=== PATIENT | male | born 1960 | race Caucasian/White ===

== ENCOUNTER 2019-12-04 19:19 | Observation (INO) | payer MEDICARE, OTHER ==
[~2019-12-04] VITALS: Ht 175.3 cm; Wt 151.0 kg
[~2019-12-04 19:19] MED LIST: DIOVAN160 MG PO; GLUCOTROL XL10 MG; KEFLEX500 MG; METFORMIN HCL500 MG PO; METHOTREXATE2.5 MG PO; NEURONTIN300 MG; TAMSULOSIN HCL0.4 MG PO; TYLENOL WITH C1 EACH PO
--- OUTSIDE RECORDS SUMMARY | 2019-12-04 19:22 | XMS REPORT ---
Author Author [facility] Address Unknown Phone Unavailable Care Team Providers Care Showroom Salesperson Name Role Phone Unavailable Unavailable Problems This patient has no known problems. Allergies, Adverse Reactions, Alerts This patient has no known allergies or adverse reactions. Medications This patient has no known medications. Encounters Start Date/Time End Date/Time Encounter Type Admission Type Attending [facility] Care Facility Care Department Encounter ID 2019-08-11 20:53:00 2019-08-11 20:53:00 Emergency E [id number]
[2019-12-04] MEDS ORDERED: SODIUM CHLORIDE 0.9% 1000ML 1,000 ML IV STA (19:28)
[2019-12-04] MEDS ORDERED: ASPIRIN 81 MG CHEW TAB PO ONE ×2 (19:30→21:45)
[2019-12-04] MEDS ORDERED: ADENOSINE 6 MG/2 ML VIAL IV ONE ×3 (19:30→20:00)
[2019-12-04 19:36] LABS: BASOPHILS % 0.4 % (0.0-1.0); EOSINOPHILS # (AUTO) 0.2 (0.0-0.4); EOSINOPHILS % 2.1 % (0.0-6.0); HEMATOCRIT 49.7 % (38.2-49.6); LYMPHOCYTES % 19.3 % (18.0-39.1); MEAN CORPUSCULAR HEMOGLOBIN 27.8 pg (28-32); MEAN CORPUSCULAR HGB CONC 32.2 g/dL (31-35); MEAN CORPUSCULAR VOLUME 86.4 fL (81-99); MONOCYTES # (AUTO) 0.8 (0.2-0.8); MONOCYTES % 7.8 % (4.4-11.3); NEUTROPHILS # (AUTO) 7.3 (2.1-6.9); NEUTROPHILS % 69.9 % (38.7-80.0); PLATELET COUNT 308 x10e3/uL (140-360); RED BLOOD COUNT 5.75 x10e6/uL (4.3-5.7); RED CELL DISTRIBUTION WIDTH 13.9 % (11.7-14.4)
[2019-12-04 19:50] LABS: ALANINE AMINOTRANSFERASE 23 IU/L (0-55); ALBUMIN 3.1 g/dL (3.5-5.0); ALBUMIN/GLOBULIN RATIO 0.9 (0.8-2.0); ALKALINE PHOSPHATASE 97 IU/L (40-150); ANION GAP 13.3 mmol/L (8-16); BLOOD UREA NITROGEN 12 mg/dL (7-26); BUN/CREATININE RATIO 11 (6-25); CALCIUM 8.3 mg/dL (8.4-10.2); CARBON DIOXIDE 23 mmol/L (22-29); CHLORIDE 108 mmol/L (98-107); CREATINE KINASE 130 IU/L (30-200); CREATININE, SERUM 1.07 mg/dL (0.72-1.25); EST GLOMERULAR FILTRATION RATE > 60 ML/MIN (60-); GLUCOSE 231 mg/dL (74-118); POTASSIUM 3.3 mmol/L (3.5-5.1); SODIUM 141 mmol/L (136-145)
[2019-12-04] MEDS ORDERED: ADENOSINE 6MG/2ML 3 ML ONE (19:50)
--- NOTE | 2019-12-04 20:38 | Diagnostic Imaging Report ---
EXAMINATION: CHEST SINGLE (PORTABLE) INDICATION: ^ERMD ORDER ^[id number] ^1950 ^Y COMPARISON: None FINDINGS: AP view TUBES and LINES: None. LUNGS: Lungs are well inflated. Lungs are clear. There is no evidence of pneumonia or pulmonary edema. PLEURA: No pleural effusion or pneumothorax. HEART AND MEDIASTINUM: The cardiac silhouette appears mildly prominent. BONES AND SOFT TISSUES: No acute osseous lesion. Soft tissues are unremarkable. UPPER ABDOMEN: No free air under the diaphragm. IMPRESSION: Mildly prominent cardiac silhouette. No acute abnormalities in the lungs. Signed by: Dr. Sangita Prado M.D. on 12/04/2019 8:35 PM
[2019-12-04] MEDS ORDERED: METOPROLOL TARTRATE INJ 1 MG/ML VIAL IV ONE (20:45)
[2019-12-04] MEDS ORDERED: SODIUM CHLORIDE 0.9% 50ML 50 ML ONE (21:24)
[2019-12-04] MEDS ORDERED: IOPAMIDOL 370 MG/ML 200 ML INFUS..BTL INJ ONE (21:24)
[2019-12-04] MEDS ORDERED: ONDANSETRON HCL INJ 2MG/ML 2ML 2 MG/ML VIAL IV STA (21:32)
[2019-12-04] MEDS ORDERED: MORPHINE SULFATE 2 MG/ML SYR 1ML IV PRN (21:45)
--- NOTE | 2019-12-04 22:34 | Diagnostic Imaging Report ---
EXAM: CT Chest WITH contrast- Pulmonary Embolism Protocol INDICATION: Chest pain. COMPARISON: None TECHNIQUE: Chest was scanned utilizing a multidetector helical scanner from the lung apex through the level of the diaphragm after administration of IV contrast. Coronal and sagittal reformations were obtained. Pulmonary embolism protocol was performed. IV CONTRAST: 100 cc of Isovue 370 RADIATION DOSE: Total DLP: 613.2 mGy*cm Dose modulation, iterative reconstruction, and/or weight based adjustment of the mA/kV was utilized to reduce the radiation dose to as low as reasonably achievable. COMPLICATIONS: None FINDINGS: LINES/ TUBES: None. PULMONARY ARTERIES: No filling defect is identified within the pulmonary arteries to the segmental level. The subsegmental pulmonary arteries are not well opacified. Main pulmonary artery measures 3.5 cm in diameter. LUNGS AND AIRWAYS: The central airways are patent. There is mosaic attenuation with multifocal groundglass opacities in all lobes. Diffuse mild bronchial wall thickening. No evidence of consolidative pneumonia. PLEURA: The pleural spaces are clear. HEART AND MEDIASTINUM: Limited evaluation of the thyroid gland. There is enlargement of the right thyroid gland. No mediastinal, hilar or axillary lymphadenopathy. No cardiomegaly or pericardial effusion. Scattered coronary atherosclerosis. UPPER ABDOMEN: Limited contrast-enhanced views of the upper abdomen. Cholelithiasis. BONES: The visualized bony thorax is within normal limits. SOFT TISSUES: Unremarkable. IMPRESSION: No evidence of pulmonary embolism to level of the segmental pulmonary arteries. Enlarged main pulmonary artery, suggestive of pulmonary arterial hypertension. Mosaic attenuation with multifocal groundglass opacities, which may reflect small airways disease, microvascular obstruction, infectious process, or pulmonary edema. No evidence of consolidative pneumonia. Enlarged right thyroid gland. Recommend nonemergent follow-up thyroid ultrasound for further evaluation. Signed by: Dr. Marielos Jensen MD on 12/04/2019 10:31 PM
[2019-12-05] VITALS (9 sets, daily range): BP systolic 133–176; BP diastolic 65–85
--- NOTE | 2019-12-05 | NUR ---
PATIENT RESTING, NO DISTRESS NOTED, REMAIN ON TELEMETRY AT . CALL LIGHT REMAIN IN REACH. WILL CONTINUE TO MONITOR.
[2019-12-05] MEDS: MORPHINE SULFATE INJ 4 MG/ML INJ 1ML IV PRN ×3 (04:21→23:30)
[2019-12-05] MEDS: ONDANSETRON HCL INJ 2MG/ML 2ML 2 MG/ML VIAL IV PRN ×3 (04:21→23:30)
[2019-12-05 06:16] LABS: BASOPHILS % 0.4 % (0.0-1.0); EOSINOPHILS # (AUTO) 0.3 (0.0-0.4); EOSINOPHILS % 3.7 % (0.0-6.0); HEMATOCRIT 41.1 % (38.2-49.6); LYMPHOCYTES # (AUTO) 2.2 (1.0-3.2); LYMPHOCYTES % 26.7 % (18.0-39.1); MEAN CORPUSCULAR HEMOGLOBIN 27.7 pg (28-32); MEAN CORPUSCULAR HGB CONC 31.6 g/dL (31-35); MEAN CORPUSCULAR VOLUME 87.6 fL (81-99); MONOCYTES # (AUTO) 0.8 (0.2-0.8); MONOCYTES % 9.9 % (4.4-11.3); NEUTROPHILS # (AUTO) 4.7 (2.1-6.9); NEUTROPHILS % 58.7 % (38.7-80.0); PLATELET COUNT 192 x10e3/uL (140-360); RED BLOOD COUNT 4.69 x10e6/uL (4.3-5.7); RED CELL DISTRIBUTION WIDTH 14.1 % (11.7-14.4)
[2019-12-05] MEDS ORDERED: ATORVASTATIN CA10 MG PO (06:16)
[2019-12-05] MEDS ORDERED: NOVOLOG100 UNIT/1 (06:16)
[2019-12-05] MEDS ORDERED: GABAPENTIN300 MG PO (06:16)
[2019-12-05] MEDS ORDERED: FOLIC ACID0.4 MG PO (06:16)
[2019-12-05] MEDS ORDERED: ALLOPURINOL300 MG PO (06:16)
[2019-12-05] MEDS ORDERED: CYMBALTA30 MG PO (06:16)
[2019-12-05] MEDS ORDERED: ASPIRIN81 MG (06:16)
[2019-12-05] MEDS ORDERED: CYCLOBENZAPRINE5 MG PO (06:16)
[2019-12-05] MEDS ORDERED: NORCO 10-325 T1 EACH PO (06:16)
[2019-12-05] MEDS ORDERED: ALLOPURINOL100 MG PO (06:16)
[2019-12-05 06:34] LABS: ALANINE AMINOTRANSFERASE 21 IU/L (0-55); ALBUMIN/GLOBULIN RATIO 0.8 (0.8-2.0); ALKALINE PHOSPHATASE 81 IU/L (40-150); BLOOD UREA NITROGEN 14 mg/dL (7-26); BUN/CREATININE RATIO 16 (6-25); CALCIUM 9.1 mg/dL (8.4-10.2); CARBON DIOXIDE 26 mmol/L (22-29); CHLORIDE 105 mmol/L (98-107); CREATININE, SERUM 0.89 mg/dL (0.72-1.25); EST GLOMERULAR FILTRATION RATE > 60 ML/MIN (60-); GLUCOSE 257 mg/dL (74-118); SODIUM 139 mmol/L (136-145)
[2019-12-05 06:40] LABS: CREATINE KINASE 104 IU/L (30-200)
[2019-12-05 06:55] LABS: FREE THYROXINE INDEX 2.6114 (1.4-3.8); THYROID STIMULATING HORMONE 1.412 uIU/mL (0.350-4.940)
--- NOTE | 2019-12-05 07:23 | NUR ---
REPORT GIVEN TO AM NURSE.
--- NOTE | 2019-12-05 07:25 | NUR ---
PATIENT AMBULATING IN HALLWAY WITH THE WALKER, NO DISTRESS NOTED. WILL CLOSELY MONITOR.
[2019-12-05 08:06] LABS: EOSINOPHILS % (MANUAL) 3 % (0-7); LYMPHOCYTES % (MANUAL) 41 % (19-48); MONOCYTES % (MANUAL) 4 % (3.4-9.0); NEUTROPHILS % (MANUAL) 52 % (40-74)
[2019-12-05 08:07] LABS: PLATELET ESTIMATE ADEQUATE; PLATELET MORPHOLOGY COMMENT NORMAL; RBC MORPHOLOGY COMMENT NORMAL
[2019-12-05] MEDS ORDERED: HYDROCODONE/APAP 10MG-325MG TAB PO PRN (10:00)
[2019-12-05] MEDS ORDERED: DEXTROSE 50% SYRINGE 50 ML IV PRN (10:00)
--- NOTE | 2019-12-05 10:20 | History and Physical ---
CHIEF COMPLAINT: Chest pain and palpitation. HISTORY OF PRESENT ILLNESS: The patient is a 59-year-old male, came in with palpitation and chest pain. The patient had an EKG showing SVT. He is in normal sinus rhythm now. The patient is otherwise stable. He will have a stress test today. The patient is otherwise stable. PAST MEDICAL HISTORY: Diabetes type 2, obesity, insulin-requiring diabetes, depression, anxiety disorder, pulmonary hypertension, hypertension, history of gout, kidney stone, obstructive sleep apnea, rheumatoid arthritis, and enlarged prostate. SOCIAL HISTORY: The patient does not smoke or use alcohol. No illicit drug use. He lives by himself. ALLERGIES: TO SULINDAC AND DIPHENHYDRAMINE. HOME MEDICATIONS: The patient is on allopurinol, aspirin, Lipitor, Flexeril, duloxetine, folic acid, gabapentin, Toivola, NovoLog insulin, methotrexate, Flomax, and losartan. REVIEW OF SYSTEMS: The patient is asymptomatic at this time. PHYSICAL EXAMINATION: VITAL SIGNS: Temperature is 97, blood pressure 138/72, pulse rate 84, and respirations 18. GENERAL: The patient is not in acute distress. He is awake. HEENT: Normocephalic and atraumatic. He is anicteric. NECK: Supple grossly. PULMONARY: Clear. CARDIOVASCULAR: Regular rate and rhythm. ABDOMEN: Soft, obese. EXTREMITIES: No cyanosis or edema. NEUROLOGIC: No focal deficit. LABORATORY DATA: WBC is 8.1, hemoglobin 13, hematocrit 41, and platelets 192. Chemistry; sodium 139, potassium 4, chloride 105, bicarb 26, BUN 14, creatinine 0.9, and glucose is 257. IMPRESSION: 1. Supraventricular tachycardia. 2. Chest pain. 3. Multiple chronic baseline medical problems. PLAN: Continue with home medication with some adjustment. Stress test today. Insulin sliding scale coverage. We will follow up on the patient's symptoms. MD KALEY De La Torre/MELAL /[id number]
--- NOTE | 2019-12-05 10:50 | NUR ---
Pt. expressed no spiritual or emotional concerns at this time. Filling Separator provided hospitality and information on how to reach partner cco, if needed. No need to follow at this time. ALL [facility] Filling Separator Spiritual Care Department O: [phone]
--- NOTE | 2019-12-05 11:05 | Consultation ---
DATE OF CONSULTATION: Cardiology Consult HISTORY OF PRESENT ILLNESS: Mr. Maxi Alejandra is a 59-year-old male with primary history of hypertension, diabetes, hyperlipidemia, GERD, obesity, arthritis, and kidney stones, admitted complaining of midsternal chest pain, he describes as pressure, 8/10 in intensity, nonradiating, that exacerbates with activity. The patient denies any shortness of breath, dizziness, nausea, or vomiting. The patient endorsed he has experienced heartburn with his chest pain, he is currently experiencing is different from that. PAST MEDICAL HISTORY: As mentioned above. FAMILY HISTORY: Mom had heart disease. Dad of lung cancer. SOCIAL HISTORY: The patient is nonsmoker. He is a minimal use of alcohol. No illicit drug use. HOME MEDICATIONS: Aspirin 81 mg, atorvastatin 10 mg daily, insulin, aspirin, valsartan 160 mg p.o. daily, tamsulosin 0.4 mg daily, allopurinol 300 mg tablet daily, duloxetine 30 mg daily, folic acid 0.4 mg tablet daily, and gabapentin 300 mg three times a day. PHYSICAL EXAMINATION: VITAL SIGNS: Temperature 96.2, 84 heart rate, 18 respirations, BP is 138/72, and pulse ox 99% on 2 L nasal cannula, but 94% on room air. GENERAL: The patient is well developed, well nourished, in no acute respiratory distress. SKIN: Normal in appearance, texture, and temperature. Warm and dry. HEENT: The patient's cranium is normocephalic and atraumatic. Pupils are equal, round, and reactive to light and accommodation. Sclerae are nonicteric. Ears are normal. Mucosa is moist. Throat is clear. NECK: Supple. Full range of motion. No cervical lymphadenopathy. No thyromegaly and no JVD. RESPIRATORY: Normal respiratory effort. LUNGS: Clear to auscultation bilaterally. No wheezing. No rhonchi, rales, or rubs. CARDIOVASCULAR: S1, S2 audible. Regular rate and rhythm. No murmurs heard. GI: Obese, soft, nondistended, nontender. Bowel sounds are present. EXTREMITIES: No cyanosis, no edema. NEUROVASCULAR: Motor is intact. Pulses are palpable, 1+ throughout. IMPRESSION AND PLAN: The patient is a 59-year-old male with no significant cardiac history, admitted for chest pain, found out to be supraventricular tachycardia, was given adenosine in the emergency department and converted back to normal sinus rhythm this morning with a heart rate to the 70s and 80s. Admitting troponin and EKG, no evidence of ischemia. 1. Monitor on telemetry. 2. We will do a nuclear stress test/Lexiscan to exclude ischemia and then trend. 3. Trend cardiac enzymes and check lipid panel and thyroid panel. 4. Echocardiogram ordered. 5. Cardiac diet, BP control. Tight glucose control. Further recommendation will follow according to the patient's clinical course. Thank you for this consultation. We will continue to follow. Dictated by Naye Kilgore NP MD NORY Rivera/WILLIAM /[id number]
--- NOTE | 2019-12-05 11:18 | NUR ---
MD IN TO SEE PATIENT, NEW ORDER RECEIVED.
[2019-12-05] MEDS: INSULIN LISPRO 100 UNIT/1 ML 3ML VIAL SQ SCH ×5 (11:30→21:32)
--- NOTE | 2019-12-05 12:44 | NUR ---
PATIENT OFF UNIT TO NUCLEAR MEDICINE.
[2019-12-05] MEDS ORDERED: REGADENOSON 0.4 MG/5 ML SYR IV ONE (13:03)
[2019-12-05] MEDS ORDERED: GABAPENTIN 300 MG CAP PO SCH (15:00)
[2019-12-05] MEDS: VALSARTAN 160 MG TAB PO SCH (15:23)
[2019-12-05] MEDS: ASPIRIN 81 MG CHEW TAB PO SCH (15:23)
[2019-12-05] MEDS: FOLIC ACID 1 MG TAB PO SCH (15:26)
[2019-12-05] MEDS: ALLOPURINOL 100 MG TAB PO SCH (15:26)
[2019-12-05] MEDS: TAMSULOSIN HCL 0.4 MG CAP PO SCH (15:26)
[2019-12-05] MEDS: GABAPENTIN 300 MG CAP PO SCH ×2 (15:26→21:28)
[2019-12-05] MEDS: CYCLOBENZAPRINE HCL 10 MG TAB PO SCH ×2 (15:26→21:27)
[2019-12-05] MEDS: ALLOPURINOL 300 MG TAB PO SCH (15:26)
--- NOTE | 2019-12-05 15:28 | NUR ---
PATIENT BACK TO UNIT FROM NUCLEAR MEDICINE. ALL SCHEDULED MEDICATIONS GIVEN. IN BED WITH CALL LIGHT AT REACH.
[2019-12-05 16:30] LABS: CREATINE KINASE 113 IU/L (30-200)
[2019-12-05] MEDS: DULOXETINE HCL 30 MG DELAYED RELEASE PO SCH (17:13)
--- NOTE | 2019-12-05 19:27 | NUR ---
RECEIVED REPORT FROM 7AM NURSE, PATIENT RESTING IN HIS BED, NO DISTRESS NOTED. CALL LIGHT IN REACH. WILL CONTINUE TO MONITOR. REMAIN ON TELEMETRY.
[2019-12-05] MEDS ORDERED: ATORVASTATIN 10 MG TAB PO SCH (21:00)
[2019-12-06 02:19] VITALS: BP 159/81
--- NOTE | 2019-12-06 03:21 | NUR ---
CONTINUE RESTING, NO COMPLAINTS OF CHEST PAIN OR ANY DISCOMFORT. WILL CONTINUE TO MONITOR.
[2019-12-06 04:00] VITALS: BP 120/86
--- NOTE | 2019-12-06 07:01 | NUR ---
bedside shift report received from PM nurse. pt resting, no signs of distress. will continue to monitor.
--- NOTE | 2019-12-06 07:01 | NUR ---
REPORT GIVEN TO AM NURSE, PATIENT RESTING IN BED, REMAIN ON TELEMETRY. CALL LIGHT IN REACH. NO COMPLAINTS OF CHEST PAINS.
[2019-12-06 08:17] VITALS: BP 120/86
[2019-12-06 08:27] VITALS: BP 152/59
[2019-12-06] MEDS: INSULIN LISPRO 100 UNIT/1 ML 3ML VIAL SQ SCH ×4 (08:54→12:41)
[2019-12-06] MEDS: VALSARTAN 160 MG TAB PO SCH (08:56)
[2019-12-06] MEDS: DULOXETINE HCL 30 MG DELAYED RELEASE PO SCH (08:56)
[2019-12-06] MEDS: ASPIRIN 81 MG CHEW TAB PO SCH (08:56)
[2019-12-06] MEDS: TAMSULOSIN HCL 0.4 MG CAP PO SCH (08:57)
[2019-12-06] MEDS: GABAPENTIN 300 MG CAP PO SCH ×2 (08:57→14:51)
[2019-12-06] MEDS: CYCLOBENZAPRINE HCL 10 MG TAB PO SCH ×2 (08:57→14:51)
[2019-12-06] MEDS: FOLIC ACID 1 MG TAB PO SCH (08:57)
[2019-12-06] MEDS: ALLOPURINOL 100 MG TAB PO SCH (08:58)
[2019-12-06] MEDS: MORPHINE SULFATE INJ 4 MG/ML INJ 1ML IV PRN (08:58)
[2019-12-06] MEDS: ALLOPURINOL 300 MG TAB PO SCH (08:58)
[2019-12-06] MEDS: ONDANSETRON HCL INJ 2MG/ML 2ML 2 MG/ML VIAL IV PRN (08:58)
[2019-12-06] MEDS ORDERED: METOPROLOL TARTRATE 25 MG TAB PO SCH (09:00)
--- NOTE | 2019-12-06 09:53 | Operative Report ---
DATE OF PROCEDURE: 12/05/2019 SURGEON: Juma Cruz MD PROCEDURE: Lexiscan nuclear stress test. INDICATION: Chest pain. TECHNIQUE: The patient was given 10 millicuries of Myoview. Resting images were obtained in the horizontal long axis, vertical long axis, and short axis. The patient was then hooked up to the EKG machine. Lexiscan was infused over 15 seconds. During Lexiscan infusion, the patient had no chest pain and no shortness of breath. Immediately after completion of Lexiscan infusion, the patient was given 30 millicuries of Myoview, stress images were obtained in the horizontal long axis, vertical long axis, and short axis. RESULTS: 1. There was a resting EKG demonstrated normal sinus rhythm with a normal record. 2. There were no EKG changes and no symptoms during Lexiscan infusion. 3. There was normal perfusion to all segments of the myocardium in both stress and rest. 4. There was normal left ventricular size and function with an ejection fraction of 50%. CONCLUSION: Normal Lexiscan nuclear stress test with no evidence of ischemia. Juma Cruz MD H/MODL /[id number] cc: Ferny Tolentino MD
--- NOTE | 2019-12-06 11:00 | NUR ---
Pt frustrated by hospital procedures during pandemic. Bilingual Teacher Assistant delivered grape juice and crackers to pt for communion. Provided calming pastoral presence and empathic listening. ALL [facility] Spiritual Care Department O: [phone]
[2019-12-06 11:56] VITALS: BP 135/74
[2019-12-06] MEDS ORDERED: LOPRESSOR25 MG PO (15:11)
--- NOTE | 2019-12-06 19:35 | Discharge Summary ---
The patient was on observation. PRIMARY CARE PHYSICIAN: Dr. Tawanda Pollock. CONSULTANTS: Dr. Juma Cruz. FINAL DIAGNOSES: 1. Supraventricular tachycardia, resolved with beta-arik. 2. Chest pain, atypical with negative stress test. SUMMARY: A 59-year-old male, who came in with some SVT and chest pain. Negative stress test. Lopressor 25 mg twice a day to control patient's heart rate. He is stable. The patient will go home. Resume home medication. We will start on Lopressor 25 mg twice a day. The patient will follow up with Dr. Tawanda Pollock for medication adjustment. MD KALEY De La Torre/WILLIAM /[id number]
== END 2019-12-06 15:05 | disposition home or self-care (01) ==
LOC: ER 19:19 → ERHOLD 21:44 → MED/SURG3 23:19
PROVIDERS: ADMIT Internal Medicine; ATTEND Internal Medicine
DX: I47.1 Supraventricular tachycardia (principal); R07.89 Other chest pain; E11.9 Type 2 diabetes mellitus without complications; E66.9 Obesity, unspecified; I10 Essential (primary) hypertension; E78.5 Hyperlipidemia, unspecified; K21.9 Gastro-esophageal reflux disease without esophagitis; Z88.8 Allergy status to other drugs, medicaments and biological substances; Z87.442 Personal history of urinary calculi; Z82.49 Family history of ischemic heart disease and other diseases of the circulatory system; Z80.1 Family history of malignant neoplasm of trachea, bronchus and lung; Z68.42 Body mass index [BMI] 45.0-49.9, adult; Z79.82 Long term (current) use of aspirin; Z79.4 Long term (current) use of insulin
CPT/HCPCS: 36415; 71045; 71260; 78452; 80053; 82550; 82553; 82948; 83880; 84436; 84443; 84479; 84484; 85025; 85379; 93005; 93017; 93306; 99284; A9502; G0378; J0153; J2270; J2405; J7030; Q9967

== ENCOUNTER 2020-06-26 17:38 | Inpatient (IN) | payer MEDICARE ==
[~2020-06-26] VITALS: Ht 188 cm; Wt 150.1 kg
[~2020-06-26 17:38] MED LIST changes: +ALLOPURINOL100 MG PO; +ALLOPURINOL300 MG PO; +ASPIRIN81 MG; +ATORVASTATIN CA10 MG PO; +CYCLOBENZAPRINE5 MG PO; +CYMBALTA30 MG PO; +FOLIC ACID0.4 MG PO; +GABAPENTIN300 MG PO; +LOPRESSOR25 MG PO; +NORCO 10-325 T1 EACH PO; +NOVOLOG100 UNIT/1
[2020-06-26 18:36] LABS: BASOPHILS # (AUTO) 0.1 (0.0-0.1); BASOPHILS % 0.4 % (0.0-1.0); EOSINOPHILS # (AUTO) 0.2 (0.0-0.4); EOSINOPHILS % 1.9 % (0.0-6.0); HEMATOCRIT 47.1 % (38.2-49.6); HEMOGLOBIN 15.3 g/dL (14.0-18.0); LYMPHOCYTES % 16.9 % (18.0-39.1); MEAN CORPUSCULAR HEMOGLOBIN 28.1 pg (28-32); MEAN CORPUSCULAR HGB CONC 32.5 g/dL (31-35); MEAN CORPUSCULAR VOLUME 86.4 fL (81-99); MONOCYTES % 8.5 % (4.4-11.3); NEUTROPHILS # (AUTO) 8.4 (2.1-6.9); NEUTROPHILS % 71.8 % (38.7-80.0); PLATELET COUNT 251 x10e3/uL (140-360); RED BLOOD COUNT 5.45 x10e6/uL (4.3-5.7); RED CELL DISTRIBUTION WIDTH 13.6 % (11.7-14.4)
[2020-06-26 19:01] LABS: ALANINE AMINOTRANSFERASE 19 IU/L (0-55); ALBUMIN 3.6 g/dL (3.5-5.0); ALBUMIN/GLOBULIN RATIO 0.8 (0.8-2.0); ALKALINE PHOSPHATASE 90 IU/L (40-150); ANION GAP 17.7 mmol/L (8-16); BLOOD UREA NITROGEN 15 mg/dL (7-26); BUN/CREATININE RATIO 13 (6-25); CALCIUM 9.9 mg/dL (8.4-10.2); CARBON DIOXIDE 28 mmol/L (22-29); CHLORIDE 100 mmol/L (98-107); CREATINE KINASE 72 IU/L (30-200); CREATININE, SERUM 1.14 mg/dL (0.72-1.25); EST GLOMERULAR FILTRATION RATE > 60 ML/MIN (60-); GLUCOSE 230 mg/dL (74-118); POTASSIUM 3.7 mmol/L (3.5-5.1); SODIUM 142 mmol/L (136-145)
[2020-06-26 19:30] LABS: CLARITY,URINE CLOUDY (CLEAR); COLOR,URINE YELLOW (YELLOW)
[2020-06-26 19:31] LABS: BILIRUBIN,URINE NEGATIVE (NEGATIVE); KETONES,URINE NEGATIVE (NEGATIVE); LEUKOCYTE ESTERASE ,URINE NEGATIVE (NEGATIVE); NITRITE,URINE NEGATIVE (NEGATIVE); PROTEIN,URINE DIPSTICK NEGATIVE (NEGATIVE); URINE UROBILINOGEN 0.2 mg/dL (0.2 - 1); WBC,URINE (MAN) >50 /HPF (0-5)
[2020-06-26 19:32] LABS: BACTERIA,URINE MANY /HPF; EPITHELIAL CELLS,URINE MANY /LPF; RBC,URINE >50 /HPF (0-5)
[2020-06-26] MEDS ORDERED: SODIUM CHLORIDE FLUSH 10 ML SYR INJ PRN (22:15)
[2020-06-26] MEDS ORDERED: ONDANSETRON HCL INJ 2MG/ML 2ML 2 MG/ML VIAL IV PRN (22:15)
[2020-06-26] MEDS ORDERED: DEXTROSE 50% SYRINGE 50 ML IV PRN (22:15)
[2020-06-26] MEDS: CEFTRIAXONE SOD 1 GM/NS 50 ML 50 ML IV SCH (22:30)
[2020-06-27] VITALS (13 sets, daily range): BP systolic 94–143; BP diastolic 66–104
[2020-06-27] MEDS ORDERED: INSULIN REGULAR, HUMAN 100 UNIT/1 ML 3ML VIAL SQ ONE (00:15)
[2020-06-27 02:06] LABS: CREATINE KINASE 52 IU/L (30-200)
[2020-06-27] MEDS ORDERED: GABAPENTIN 300 MG CAP PO SCH ×2 (04:00→09:00)
[2020-06-27] MEDS ORDERED: GABAPENTIN 300 MG CAP PO ONE (04:15)
[2020-06-27] MEDS: HYDROCODONE/APAP 10MG-325MG TAB PO PRN ×2 (04:52→17:31)
[2020-06-27 05:58] LABS: BASOPHILS % 0.4 % (0.0-1.0); EOSINOPHILS # (AUTO) 0.2 (0.0-0.4); EOSINOPHILS % 2.5 % (0.0-6.0); HEMATOCRIT 46.6 % (38.2-49.6); LYMPHOCYTES # (AUTO) 2.2 (1.0-3.2); LYMPHOCYTES % 22.7 % (18.0-39.1); MEAN CORPUSCULAR HEMOGLOBIN 27.5 pg (28-32); MEAN CORPUSCULAR HGB CONC 32.2 g/dL (31-35); MEAN CORPUSCULAR VOLUME 85.5 fL (81-99); MONOCYTES # (AUTO) 0.8 (0.2-0.8); NEUTROPHILS # (AUTO) 6.5 (2.1-6.9); NEUTROPHILS % 65.9 % (38.7-80.0); PLATELET COUNT 225 x10e3/uL (140-360); RED BLOOD COUNT 5.45 x10e6/uL (4.3-5.7); RED CELL DISTRIBUTION WIDTH 13.9 % (11.7-14.4)
[2020-06-27 06:21] LABS: ALANINE AMINOTRANSFERASE 16 IU/L (0-55); ALBUMIN 3.3 g/dL (3.5-5.0); ALBUMIN/GLOBULIN RATIO 0.8 (0.8-2.0); ALKALINE PHOSPHATASE 78 IU/L (40-150); ANION GAP 13.7 mmol/L (8-16); BLOOD UREA NITROGEN 19 mg/dL (7-26); BUN/CREATININE RATIO 21 (6-25); CALCIUM 9.2 mg/dL (8.4-10.2); CARBON DIOXIDE 24 mmol/L (22-29); CHLORIDE 103 mmol/L (98-107); CREATININE, SERUM 0.89 mg/dL (0.72-1.25); EST GLOMERULAR FILTRATION RATE > 60 ML/MIN (60-); GLUCOSE 184 mg/dL (74-118); POTASSIUM 3.7 mmol/L (3.5-5.1); SODIUM 137 mmol/L (136-145)
[2020-06-27] MEDS: INSULIN REGULAR, HUMAN 100 UNIT/1 ML 3ML VIAL SQ SCH ×2 (08:30→12:15)
[2020-06-27] MEDS ORDERED: METOPROLOL TARTRATE 25 MG TAB PO SCH (09:00)
[2020-06-27] MEDS ORDERED: BENAZEPRIL HCL 10 MG TAB PO SCH (09:00)
[2020-06-27] MEDS ORDERED: VALSARTAN 160 MG TAB PO SCH (09:00)
[2020-06-27] MEDS: TAMSULOSIN HCL 0.4 MG CAP PO SCH (09:31)
[2020-06-27] MEDS: ASPIRIN 81 MG CHEW TAB PO SCH (09:31)
[2020-06-27] MEDS: FOLIC ACID 1 MG TAB PO SCH (09:31)
[2020-06-27] MEDS: DULOXETINE HCL 30 MG DELAYED RELEASE PO SCH ×2 (09:31→17:32)
[2020-06-27] MEDS: ALLOPURINOL 100 MG TAB PO SCH (09:32)
[2020-06-27] MEDS: GABAPENTIN 300 MG CAP PO SCH ×3 (09:33→20:32)
[2020-06-27] MEDS ORDERED: AMLODIPINE BESYL5 MG PO (09:37)
[2020-06-27] MEDS ORDERED: BENAZEPRIL HCL10 MG PO (09:37)
[2020-06-27] MEDS: FENOFIBRATE 145 MG TAB PO SCH (10:30)
[2020-06-27 10:42] LABS: CHOL/HDL RATIO 3.7 (3.9-4.7)
[2020-06-27 11:02] LABS: THYROID STIMULATING HORMONE 2.053 uIU/mL (0.350-4.940)
[2020-06-27] MEDS: AMLODIPINE BESYLATE 5 MG TAB PO SCH (11:59)
[2020-06-27] MEDS: BENAZEPRIL HCL 10 MG TAB PO SCH (11:59)
[2020-06-27 14:47] LABS: CREATINE KINASE 45 IU/L (30-200)
[2020-06-27] MEDS ORDERED: DEXTROSE 50% SYRINGE 50 ML IV PRN ×2 (15:45→16:15)
[2020-06-27] MEDS ORDERED: INSULIN LISPRO 100 UNIT/1 ML 3ML VIAL SQ SCH (16:30)
[2020-06-27] MEDS: INSULIN LISPRO 100 UNIT/1 ML 3ML VIAL SQ SCH ×3 (17:30→21:56)
[2020-06-27] MEDS: METOPROLOL TARTRATE 25 MG TAB PO SCH (17:32)
[2020-06-27] MEDS: CEFTRIAXONE SOD 1 GM/NS 50 ML 50 ML IV SCH (20:32)
[2020-06-27] MEDS: ATORVASTATIN 10 MG TAB PO SCH (20:32)
[2020-06-27] MEDS ORDERED: SODIUM CHLORIDE 0.9% 50ML 50 ML ONE (20:37)
[2020-06-27] MEDS ORDERED: INSULIN GLARGINE 100 UNITS/ML VIAL SQ SCH (21:00)
[2020-06-28] VITALS (19 sets, daily range): BP systolic 54–150; BP diastolic 20–82
[2020-06-28] MEDS: HYDROCODONE/APAP 10MG-325MG TAB PO PRN ×2 (07:37→16:46)
[2020-06-28] MEDS: METOPROLOL TARTRATE 25 MG TAB PO SCH ×2 (07:43→16:30)
[2020-06-28] MEDS: DULOXETINE HCL 30 MG DELAYED RELEASE PO SCH ×2 (07:43→16:30)
[2020-06-28] MEDS: TAMSULOSIN HCL 0.4 MG CAP PO SCH (07:43)
[2020-06-28] MEDS: FOLIC ACID 1 MG TAB PO SCH (07:43)
[2020-06-28] MEDS: ASPIRIN 81 MG CHEW TAB PO SCH (07:43)
[2020-06-28] MEDS: BENAZEPRIL HCL 10 MG TAB PO SCH (07:44)
[2020-06-28] MEDS: AMLODIPINE BESYLATE 5 MG TAB PO SCH (07:44)
[2020-06-28] MEDS: PYRIDOSTIGMINE BROMIDE 60 MG TAB PO SCH ×3 (07:45→20:02)
[2020-06-28] MEDS: ALLOPURINOL 100 MG TAB PO SCH (07:45)
[2020-06-28] MEDS: INSULIN LISPRO 100 UNIT/1 ML 3ML VIAL SQ SCH ×7 (07:45→19:58)
[2020-06-28] MEDS: FENOFIBRATE 145 MG TAB PO SCH (07:45)
[2020-06-28] MEDS: GABAPENTIN 300 MG CAP PO SCH ×3 (07:45→20:02)
[2020-06-28] MEDS: LIDOCAINE 4% PATCH TP SCH (14:12)
[2020-06-28] MEDS: KETOROLAC TROMETHAMINE 30 MG/ML VIAL IV SCH ×2 (14:12→18:29)
[2020-06-28] MEDS: INSULIN GLARGINE 100 UNITS/ML VIAL SQ SCH (19:58)
[2020-06-28] MEDS: CEFTRIAXONE SOD 1 GM/NS 50 ML 50 ML IV SCH (20:02)
[2020-06-28] MEDS: ATORVASTATIN 10 MG TAB PO SCH (20:02)
[2020-06-29] VITALS (19 sets, daily range): BP systolic 83–140; BP diastolic 56–85
[2020-06-29] MEDS: KETOROLAC TROMETHAMINE 30 MG/ML VIAL IV SCH ×2 (00:50→06:44)
[2020-06-29 05:49] LABS: BASOPHILS % 0.6 % (0.0-1.0); EOSINOPHILS # (AUTO) 0.2 (0.0-0.4); EOSINOPHILS % 3.4 % (0.0-6.0); HEMOGLOBIN 15.9 g/dL (14.0-18.0); LYMPHOCYTES # (AUTO) 2.1 (1.0-3.2); LYMPHOCYTES % 29.2 % (18.0-39.1); MEAN CORPUSCULAR HEMOGLOBIN 27.6 pg (28-32); MEAN CORPUSCULAR HGB CONC 31.8 g/dL (31-35); MEAN CORPUSCULAR VOLUME 86.7 fL (81-99); MONOCYTES # (AUTO) 0.6 (0.2-0.8); MONOCYTES % 7.7 % (4.4-11.3); NEUTROPHILS # (AUTO) 4.2 (2.1-6.9); NEUTROPHILS % 58.5 % (38.7-80.0); PLATELET COUNT 226 x10e3/uL (140-360); RED BLOOD COUNT 5.77 x10e6/uL (4.3-5.7); RED CELL DISTRIBUTION WIDTH 13.7 % (11.7-14.4)
[2020-06-29] MEDS: HYDROCODONE/APAP 10MG-325MG TAB PO PRN ×2 (06:10→22:12)
[2020-06-29 06:32] LABS: ALANINE AMINOTRANSFERASE 28 IU/L (0-55); ALBUMIN 3.4 g/dL (3.5-5.0); ALBUMIN/GLOBULIN RATIO 0.9 (0.8-2.0); ALKALINE PHOSPHATASE 78 IU/L (40-150); ANION GAP 14.1 mmol/L (8-16); BLOOD UREA NITROGEN 22 mg/dL (7-26); BUN/CREATININE RATIO 23 (6-25); CALCIUM 9.2 mg/dL (8.4-10.2); CARBON DIOXIDE 28 mmol/L (22-29); CHLORIDE 104 mmol/L (98-107); CREATININE, SERUM 0.95 mg/dL (0.72-1.25); EST GLOMERULAR FILTRATION RATE > 60 ML/MIN (60-); GLUCOSE 129 mg/dL (74-118); POTASSIUM 4.1 mmol/L (3.5-5.1); SODIUM 142 mmol/L (136-145)
[2020-06-29] MEDS: INSULIN LISPRO 100 UNIT/1 ML 3ML VIAL SQ SCH ×7 (08:29→21:00)
[2020-06-29] MEDS: ASPIRIN 81 MG CHEW TAB PO SCH (08:30)
[2020-06-29] MEDS: TAMSULOSIN HCL 0.4 MG CAP PO SCH (08:30)
[2020-06-29] MEDS: FOLIC ACID 1 MG TAB PO SCH (08:30)
[2020-06-29] MEDS: DULOXETINE HCL 30 MG DELAYED RELEASE PO SCH ×2 (08:30→17:17)
[2020-06-29] MEDS: METOPROLOL TARTRATE 25 MG TAB PO SCH ×2 (08:31→17:17)
[2020-06-29] MEDS: BENAZEPRIL HCL 10 MG TAB PO SCH (08:32)
[2020-06-29] MEDS: PYRIDOSTIGMINE BROMIDE 60 MG TAB PO SCH ×3 (08:33→20:39)
[2020-06-29] MEDS: FENOFIBRATE 145 MG TAB PO SCH (08:33)
[2020-06-29] MEDS: ALLOPURINOL 100 MG TAB PO SCH (08:33)
[2020-06-29] MEDS: GABAPENTIN 300 MG CAP PO SCH ×3 (08:33→20:41)
[2020-06-29] MEDS: LIDOCAINE 4% PATCH TP SCH (08:36)
[2020-06-29] MEDS ORDERED: FLUCONAZOLE 100 MG TAB PO ONE (14:30)
[2020-06-29] MEDS: ATORVASTATIN 10 MG TAB PO SCH (20:39)
[2020-06-29] MEDS: CEFTRIAXONE SOD 1 GM/NS 50 ML 50 ML IV SCH (20:50)
[2020-06-29] MEDS: INSULIN GLARGINE 100 UNITS/ML VIAL SQ SCH (23:43)
[2020-06-30] VITALS (16 sets, daily range): BP systolic 87–153; BP diastolic 54–95
[2020-06-30] MEDS: INSULIN LISPRO 100 UNIT/1 ML 3ML VIAL SQ SCH ×7 (07:30→21:45)
[2020-06-30] MEDS: ASPIRIN 81 MG CHEW TAB PO SCH (09:55)
[2020-06-30] MEDS: DULOXETINE HCL 30 MG DELAYED RELEASE PO SCH ×2 (09:56→17:19)
[2020-06-30] MEDS: FOLIC ACID 1 MG TAB PO SCH (09:56)
[2020-06-30] MEDS: TAMSULOSIN HCL 0.4 MG CAP PO SCH (09:56)
[2020-06-30] MEDS: METOPROLOL TARTRATE 25 MG TAB PO SCH ×2 (09:57→17:19)
[2020-06-30] MEDS: ALLOPURINOL 100 MG TAB PO SCH (09:57)
[2020-06-30] MEDS: FENOFIBRATE 145 MG TAB PO SCH (09:57)
[2020-06-30] MEDS: PYRIDOSTIGMINE BROMIDE 60 MG TAB PO SCH ×3 (09:57→21:45)
[2020-06-30] MEDS: GABAPENTIN 300 MG CAP PO SCH ×3 (09:57→21:45)
[2020-06-30] MEDS: LIDOCAINE 4% PATCH TP SCH (09:58)
[2020-06-30] MEDS ORDERED: FLUCONAZOLE 100 MG TAB PO ONE (14:00)
[2020-06-30] MEDS ORDERED: IOPAMIDOL 370 MG/ML 200 ML INFUS..BTL INJ ONE (18:37)
[2020-06-30] MEDS ORDERED: SODIUM CHLORIDE 0.9% 50ML 50 ML ONE (18:37)
[2020-06-30] MEDS ORDERED: INSULIN GLARGINE 100 UNITS/ML VIAL SQ SCH (21:00)
[2020-06-30] MEDS: CEFTRIAXONE SOD 1 GM/NS 50 ML 50 ML IV SCH (21:45)
[2020-06-30] MEDS: ATORVASTATIN 10 MG TAB PO SCH (21:45)
[2020-07-01] VITALS (8 sets, daily range): BP systolic 112–149; BP diastolic 65–94
[2020-07-01] MEDS: HYDROCODONE/APAP 10MG-325MG TAB PO PRN (00:29)
[2020-07-01 06:11] LABS: BASOPHILS % 0.6 % (0.0-1.0); EOSINOPHILS # (AUTO) 0.2 (0.0-0.4); EOSINOPHILS % 3.3 % (0.0-6.0); HEMATOCRIT 43.7 % (38.2-49.6); HEMOGLOBIN 13.9 g/dL (14.0-18.0); LYMPHOCYTES # (AUTO) 1.9 (1.0-3.2); LYMPHOCYTES % 29.3 % (18.0-39.1); MEAN CORPUSCULAR HEMOGLOBIN 27.9 pg (28-32); MEAN CORPUSCULAR HGB CONC 31.8 g/dL (31-35); MEAN CORPUSCULAR VOLUME 87.8 fL (81-99); MONOCYTES # (AUTO) 0.6 (0.2-0.8); MONOCYTES % 8.6 % (4.4-11.3); NEUTROPHILS # (AUTO) 3.7 (2.1-6.9); NEUTROPHILS % 57.9 % (38.7-80.0); PLATELET COUNT 206 x10e3/uL (140-360); RED BLOOD COUNT 4.98 x10e6/uL (4.3-5.7); RED CELL DISTRIBUTION WIDTH 13.5 % (11.7-14.4)
[2020-07-01 06:34] LABS: ANION GAP 11.4 mmol/L (8-16); BLOOD UREA NITROGEN 14 mg/dL (7-26); BUN/CREATININE RATIO 16 (6-25); CALCIUM 8.8 mg/dL (8.4-10.2); CARBON DIOXIDE 28 mmol/L (22-29); CHLORIDE 107 mmol/L (98-107); CREATININE, SERUM 0.85 mg/dL (0.72-1.25); EST GLOMERULAR FILTRATION RATE > 60 ML/MIN (60-); GLUCOSE 156 mg/dL (74-118); POTASSIUM 4.4 mmol/L (3.5-5.1); SODIUM 142 mmol/L (136-145)
[2020-07-01] MEDS: INSULIN LISPRO 100 UNIT/1 ML 3ML VIAL SQ SCH ×5 (07:30→16:30)
[2020-07-01] MEDS: METOPROLOL TARTRATE 25 MG TAB PO SCH (08:39)
[2020-07-01] MEDS: TAMSULOSIN HCL 0.4 MG CAP PO SCH (08:39)
[2020-07-01] MEDS: FOLIC ACID 1 MG TAB PO SCH (08:39)
[2020-07-01] MEDS: GABAPENTIN 300 MG CAP PO SCH ×2 (08:39→14:03)
[2020-07-01] MEDS: DULOXETINE HCL 30 MG DELAYED RELEASE PO SCH (08:39)
[2020-07-01] MEDS: ASPIRIN 81 MG CHEW TAB PO SCH (08:39)
[2020-07-01] MEDS: PYRIDOSTIGMINE BROMIDE 60 MG TAB PO SCH ×2 (08:39→14:03)
[2020-07-01] MEDS: FENOFIBRATE 145 MG TAB PO SCH (08:40)
[2020-07-01] MEDS: ALLOPURINOL 100 MG TAB PO SCH (08:40)
[2020-07-01] MEDS: LIDOCAINE 4% PATCH TP SCH (08:41)
[2020-07-01] MEDS ORDERED: BENAZEPRIL HCL 10 MG TAB PO SCH (09:00)
[2020-07-01] MEDS ORDERED: FLUCONAZOLE 100 MG TAB PO ONE (14:00)
[2020-07-01] MEDS ORDERED: INSULIN LISPRO 100 UNIT/1 ML 3ML VIAL SQ SCH (16:30)
== END 2020-07-01 17:46 | DRG 728 ==
LOC: ER 18:45 → OBSVTOIN 22:16 → ERHOLD 22:16 → MED/SURG3 23:41 → OBSVTOIN 06-28 06:39 → INTOOBSV 06-28 06:39
PROVIDERS: ADMIT Internal Medicine; ATTEND Internal Medicine
DX: B37.49 Other urogenital candidiasis (principal); Z68.41 Body mass index [BMI] 40.0-44.9, adult; N20.0 Calculus of kidney; K80.20 Calculus of gallbladder without cholecystitis without obstruction; E11.42 Type 2 diabetes mellitus with diabetic polyneuropathy; E66.01 Morbid (severe) obesity due to excess calories; K42.9 Umbilical hernia without obstruction or gangrene; R31.29 Other microscopic hematuria; I95.1 Orthostatic hypotension; K76.0 Fatty (change of) liver, not elsewhere classified; E04.1 Nontoxic single thyroid nodule; K21.9 Gastro-esophageal reflux disease without esophagitis; M19.90 Unspecified osteoarthritis, unspecified site; K80.80 Other cholelithiasis without obstruction; Z11.59 Encounter for screening for other viral diseases
CPT/HCPCS: 36415; 70450; 71045; 71111; 71260; 74176; 80048; 80053; 80061; 81001; 82550; 82553; 82948; 83036; 83519; 83874; 84146; 84439; 84443; 84484; 85025; 86235; 87086; 93005; 93306; 93880; 95812; 97139; 99284; G0378; J0696; J1815; J1817; J1885; Q9967; U0002

== ENCOUNTER 2020-09-23 16:36 | Observation (INO) | payer MEDICARE ==
[~2020-09-23] VITALS: Ht 177.8 cm; Wt 149.7 kg
[~2020-09-23 16:36] MED LIST changes: +AMLODIPINE BESYL5 MG PO; +BENAZEPRIL HCL10 MG PO
[2020-09-23 17:43] LABS: BASOPHILS % 0.5 % (0.0-1.0); EOSINOPHILS # (AUTO) 0.4 (0.0-0.4); LYMPHOCYTES # (AUTO) 1.4 (1.0-3.2); LYMPHOCYTES % 15.8 % (18.0-39.1); MEAN CORPUSCULAR HEMOGLOBIN 28.1 pg (28-32); MEAN CORPUSCULAR HGB CONC 32.5 g/dL (31-35); MEAN CORPUSCULAR VOLUME 86.4 fL (81-99); MONOCYTES # (AUTO) 0.7 (0.2-0.8); MONOCYTES % 7.9 % (4.4-11.3); NEUTROPHILS # (AUTO) 6.2 (2.1-6.9); NEUTROPHILS % 71.2 % (38.7-80.0); PLATELET COUNT 192 x10e3/uL (140-360); RED BLOOD COUNT 4.63 x10e6/uL (4.3-5.7); RED CELL DISTRIBUTION WIDTH 13.7 % (11.7-14.4)
[2020-09-23 17:56] LABS: INR 0.91; PARTIAL THROMBOPLASTIN TIME 25.4 seconds (23.8-35.5); PROTHROMBIN TIME 12.8 seconds (11.9-14.5)
[2020-09-23 18:01] LABS: ALANINE AMINOTRANSFERASE 18 IU/L (0-55); ALBUMIN 2.9 g/dL (3.5-5.0); ALBUMIN/GLOBULIN RATIO 0.7 (0.8-2.0); ALKALINE PHOSPHATASE 74 IU/L (40-150); ANION GAP 12.8 mmol/L (8-16); BLOOD UREA NITROGEN 16 mg/dL (7-26); BUN/CREATININE RATIO 18 (6-25); CALCIUM 8.5 mg/dL (8.4-10.2); CARBON DIOXIDE 29 mmol/L (22-29); CHLORIDE 103 mmol/L (98-107); CREATINE KINASE 110 IU/L (30-200); CREATININE, SERUM 0.88 mg/dL (0.72-1.25); EST GLOMERULAR FILTRATION RATE > 60 ML/MIN (60-); GLUCOSE 263 mg/dL (74-118); POTASSIUM 3.8 mmol/L (3.5-5.1); SODIUM 141 mmol/L (136-145)
[2020-09-23] MEDS ORDERED: DEXTROSE 50% SYRINGE 50 ML IV PRN (19:15)
[2020-09-23] MEDS ORDERED: SODIUM CHLORIDE FLUSH 10 ML SYR INJ PRN (19:15)
[2020-09-23] MEDS: FAMOTIDINE 20 MG/2 ML VIAL IV SCH (20:58)
[2020-09-23] MEDS: INSULIN REGULAR, HUMAN 100 UNIT/1 ML 3ML VIAL SQ SCH (20:58)
[2020-09-23] MEDS: MORPHINE SULFATE INJ 2 MG/ML SYR IV PRN (20:59)
[2020-09-24] MEDS: MORPHINE SULFATE INJ 2 MG/ML SYR IV PRN ×3 (06:19→20:20)
[2020-09-24 06:23] LABS: BASOPHILS % 0.5 % (0.0-1.0); EOSINOPHILS # (AUTO) 0.4 (0.0-0.4); EOSINOPHILS % 4.3 % (0.0-6.0); HEMATOCRIT 40.1 % (38.2-49.6); HEMOGLOBIN 12.7 g/dL (14.0-18.0); LYMPHOCYTES # (AUTO) 1.5 (1.0-3.2); LYMPHOCYTES % 18.4 % (18.0-39.1); MEAN CORPUSCULAR HEMOGLOBIN 27.8 pg (28-32); MEAN CORPUSCULAR HGB CONC 31.7 g/dL (31-35); MEAN CORPUSCULAR VOLUME 87.7 fL (81-99); MONOCYTES # (AUTO) 0.7 (0.2-0.8); NEUTROPHILS # (AUTO) 5.7 (2.1-6.9); NEUTROPHILS % 68.2 % (38.7-80.0); PLATELET COUNT 182 x10e3/uL (140-360); RED BLOOD COUNT 4.57 x10e6/uL (4.3-5.7); RED CELL DISTRIBUTION WIDTH 14.1 % (11.7-14.4)
[2020-09-24 06:40] LABS: CALCIUM IONIZED 1.2 mmol/L (1.09-1.30)
[2020-09-24] MEDS: FAMOTIDINE 20 MG/2 ML VIAL IV SCH ×2 (07:15→20:00)
[2020-09-24 07:23] LABS: CREATINE KINASE MB 2.6 ng/mL (0-5.0)
[2020-09-24 07:30] LABS: ALANINE AMINOTRANSFERASE 17 IU/L (0-55); ALBUMIN 2.8 g/dL (3.5-5.0); ALBUMIN/GLOBULIN RATIO 0.7 (0.8-2.0); ALKALINE PHOSPHATASE 72 IU/L (40-150); BLOOD UREA NITROGEN 15 mg/dL (7-26); BUN/CREATININE RATIO 19 (6-25); CALCIUM 8.5 mg/dL (8.4-10.2); CARBON DIOXIDE 25 mmol/L (22-29); CHLORIDE 106 mmol/L (98-107); CREATININE, SERUM 0.77 mg/dL (0.72-1.25); EST GLOMERULAR FILTRATION RATE > 60 ML/MIN (60-); GLUCOSE 185 mg/dL (74-118); MAGNESIUM 1.7 MG/DL (1.3-2.1); SODIUM 141 mmol/L (136-145)
[2020-09-24] MEDS: INSULIN REGULAR, HUMAN 100 UNIT/1 ML 3ML VIAL SQ SCH ×4 (08:15→20:14)
[2020-09-24] MEDS: ASPIRIN 81 MG ENTERIC COATED PO SCH (08:46)
[2020-09-24] MEDS ORDERED: METOPROLOL TARTRATE 25 MG TAB PO SCH (09:00)
[2020-09-24] MEDS: VALSARTAN 160 MG TAB PO SCH (11:20)
[2020-09-24] MEDS: ONDANSETRON HCL INJ 2MG/ML 2ML 2 MG/ML VIAL IV PRN ×2 (14:27→20:20)
[2020-09-24] MEDS: GABAPENTIN 300 MG CAP PO SCH ×2 (15:00→20:14)
[2020-09-24 15:27] LABS: CREATINE KINASE 89 IU/L (30-200)
[2020-09-24 17:00] VITALS: BP 176/99
[2020-09-24] MEDS: DULOXETINE HCL 30 MG DELAYED RELEASE PO SCH (17:34)
[2020-09-24] MEDS: METOPROLOL TARTRATE 25 MG TAB PO SCH (17:35)
[2020-09-24] MEDS: AMLODIPINE BESYLATE 5 MG TAB PO SCH (17:35)
[2020-09-24 17:36] VITALS: BP 176/99
[2020-09-24 17:42] VITALS: BP 176/99
[2020-09-24] MEDS ORDERED: INFLUENZA VIRUS VAC SPLIT INJ 0.5 ML SYR IM SCH (18:00)
[2020-09-24] MEDS ORDERED: PNEUMOCOCCAL VACCINE POLYVALENT 23 MCG/0.5 ML VIAL IM SCH (18:00)
[2020-09-24 20:00] VITALS: BP 151/81
[2020-09-24 21:00] VITALS: BP 151/81
[2020-09-24] MEDS ORDERED: ATORVASTATIN 10 MG TAB PO SCH ×2 (21:00)
[2020-09-25] VITALS (14 sets, daily range): BP systolic 124–170; BP diastolic 58–100
[2020-09-25] MEDS: MORPHINE SULFATE INJ 2 MG/ML SYR IV PRN (05:30)
[2020-09-25] MEDS: ONDANSETRON HCL INJ 2MG/ML 2ML 2 MG/ML VIAL IV PRN (05:30)
[2020-09-25 05:59] LABS: BASOPHILS # (AUTO) 0.1 (0.0-0.1); BASOPHILS % 0.5 % (0.0-1.0); EOSINOPHILS # (AUTO) 0.5 (0.0-0.4); HEMATOCRIT 39.8 % (38.2-49.6); HEMOGLOBIN 12.6 g/dL (14.0-18.0); LYMPHOCYTES # (AUTO) 1.8 (1.0-3.2); LYMPHOCYTES % 17.8 % (18.0-39.1); MEAN CORPUSCULAR HEMOGLOBIN 27.5 pg (28-32); MEAN CORPUSCULAR HGB CONC 31.7 g/dL (31-35); MEAN CORPUSCULAR VOLUME 86.9 fL (81-99); MONOCYTES # (AUTO) 0.7 (0.2-0.8); MONOCYTES % 7.1 % (4.4-11.3); NEUTROPHILS # (AUTO) 6.8 (2.1-6.9); NEUTROPHILS % 69.1 % (38.7-80.0); PLATELET COUNT 188 x10e3/uL (140-360); RED BLOOD COUNT 4.58 x10e6/uL (4.3-5.7); RED CELL DISTRIBUTION WIDTH 13.5 % (11.7-14.4)
[2020-09-25 06:02] LABS: CALCIUM IONIZED 1.1 mmol/L (1.09-1.30)
[2020-09-25 06:25] LABS: % IRON SATURATION 15 % (15-50); ANION GAP 13.9 mmol/L (8-16); BLOOD UREA NITROGEN 13 mg/dL (7-26); BUN/CREATININE RATIO 17 (6-25); CALCIUM 8.2 mg/dL (8.4-10.2); CARBON DIOXIDE 25 mmol/L (22-29); CHLORIDE 104 mmol/L (98-107); CREATININE, SERUM 0.76 mg/dL (0.72-1.25); EST GLOMERULAR FILTRATION RATE > 60 ML/MIN (60-); GLUCOSE 182 mg/dL (74-118); IRON 53 ug/dL (65-175); MAGNESIUM 1.7 MG/DL (1.3-2.1); POTASSIUM 3.9 mmol/L (3.5-5.1); SODIUM 139 mmol/L (136-145); TOTAL IRON BINDING CAPACITY 350 ug/dL (261-478); TRANSFERRIN 250 mg/dL (174-364)
[2020-09-25] MEDS: AMLODIPINE BESYLATE 5 MG TAB PO SCH ×2 (08:23→16:49)
[2020-09-25] MEDS: VALSARTAN 160 MG TAB PO SCH (08:23)
[2020-09-25] MEDS: METOPROLOL TARTRATE 25 MG TAB PO SCH ×2 (08:24→16:48)
[2020-09-25] MEDS: FAMOTIDINE 20 MG/2 ML VIAL IV SCH (08:27)
[2020-09-25] MEDS: DULOXETINE HCL 30 MG DELAYED RELEASE PO SCH ×2 (09:00→16:48)
[2020-09-25] MEDS: GABAPENTIN 300 MG CAP PO SCH ×2 (09:00→16:00)
[2020-09-25] MEDS ORDERED: METHOTREXATE SOD 2.5 MG TAB PO SCH (09:00)
[2020-09-25] MEDS: ASPIRIN 81 MG ENTERIC COATED PO SCH (09:00)
[2020-09-25] MEDS ORDERED: VALSARTAN 160 MG TAB PO SCH (09:00)
[2020-09-25] MEDS ORDERED: ALLOPURINOL 100 MG TAB PO SCH (09:00)
[2020-09-25] MEDS ORDERED: ASPIRIN 81 MG CHEW TAB PO SCH (09:00)
[2020-09-25] MEDS ORDERED: TAMSULOSIN HCL 0.4 MG CAP PO SCH (09:00)
[2020-09-25] MEDS ORDERED: ALLOPURINOL 300 MG TAB PO SCH ×2 (09:00)
[2020-09-25] MEDS: INSULIN REGULAR, HUMAN 100 UNIT/1 ML 3ML VIAL SQ SCH ×3 (09:37→16:48)
[2020-09-25] MEDS ORDERED: MIDAZOLAM HCL 2 MG/2 ML VIAL ONE (11:36)
[2020-09-25] MEDS ORDERED: HEPARIN SOD (PORCINE) 1000 UNIT/ML 30ML ONE (11:36)
[2020-09-25] MEDS ORDERED: VERAPAMIL HCL 2.5 MG/ML 2 ML VIAL ONE (11:36)
[2020-09-25] MEDS ORDERED: IOPAMIDOL 370 MG/ML 200 ML INFUS..BTL INJ ONE (11:37)
[2020-09-25] MEDS ORDERED: HEPARIN SOD/SOD CHLORIDE 2,000 ML ONE (11:37)
[2020-09-25] MEDS ORDERED: SODIUM CHLORIDE 0.9% 1000ML 1,000 ML ONE (11:37)
[2020-09-25] MEDS ORDERED: LIDOCAINE HCL 2% LOCAL 20 ML VIAL ONE (11:37)
[2020-09-25] MEDS ORDERED: FENTANYL CITRATE/PF 100MCG/2 ML INJ ONE (11:37)
== END 2020-09-25 19:07 | disposition home or self-care (01) ==
LOC: ER 17:18 → ERHOLD 19:13 → MED/SURG3 09-24 16:45
PROVIDERS: ADMIT Internal Medicine; ATTEND Internal Medicine
DX: I25.110 Atherosclerotic heart disease of native coronary artery with unstable angina pectoris (principal); E11.9 Type 2 diabetes mellitus without complications; E66.01 Morbid (severe) obesity due to excess calories; Z68.42 Body mass index [BMI] 45.0-49.9, adult; I10 Essential (primary) hypertension; E78.5 Hyperlipidemia, unspecified; K21.9 Gastro-esophageal reflux disease without esophagitis; I24.9 Acute ischemic heart disease, unspecified; Z20.822 Contact with and (suspected) exposure to COVID-19
CPT/HCPCS: 36415 ×3; 71045; 76705; 80048; 80053 ×2; 80061; 82550 ×2; 82553 ×2; 82728; 82948; 83036; 83540; 83735 ×2; 83880; 84443; 84466; 84484 ×2; 85025 ×3; 85610; 85730; 93005; 93306; 93458; 96372; 99251; 99284; C1760; C1769 ×3; C1887 ×2; G0378 ×3; J1644; J1817 ×2; J2001; J2250; J2270 ×3; J2405 ×2; J3010; J7030; Q9967; U0002; 99152; 99153

== ENCOUNTER → 2021-05-21 | Outpatient (CLI) | payer OTHER | LOC: SLEEP 20:05 | PROVIDERS: ATTEND Emergency Medicine | DX: G47.33 Obstructive sleep apnea (adult) (pediatric) (principal); G47.00 Insomnia, unspecified | CPT/HCPCS: 95811 ==

== ENCOUNTER → 2022-05-24 | Outpatient (CLI) | payer MEDICARE, OTHER ==
[~2022-05-24] MED LIST changes: +CEFDINIR300 MG PO; +HYDROCODON-ACE1 EAC9 PO; +ONDANSETRON ODT4 MG PO
== END ==
LOC: CT 11:39
PROVIDERS: ATTEND Emergency Medicine
DX: R06.00 Dyspnea, unspecified (principal)
CPT/HCPCS: 71250

== ENCOUNTER → 2022-06-21 | Outpatient (CLI) | payer MEDICARE, OTHER | LOC: SLEEP 19:32 | PROVIDERS: ATTEND Emergency Medicine | DX: G47.33 Obstructive sleep apnea (adult) (pediatric) (principal) | CPT/HCPCS: 95810 ==

== ENCOUNTER 2023-02-13 15:52 | Emergency (ER) | payer MEDICARE, OTHER ==
[~2023-02-13] VITALS: Ht 177.8 cm; Wt 149.7 kg
[2023-02-13 17:37] VITALS: O2SAT 97
[2023-02-13 18:18] LABS: BASOPHILS % 0.2 % (0.0-1.0); EOSINOPHILS # (AUTO) 0.3 (0.0-0.4); EOSINOPHILS % 3.5 % (0.0-6.0); HEMATOCRIT 39.3 % (38.2-49.6); HEMOGLOBIN 12.1 g/dL (14.0-18.0); LYMPHOCYTES # (AUTO) 1.2 (1.0-3.2); LYMPHOCYTES % 12.6 % (18.0-39.1); MEAN CORPUSCULAR HEMOGLOBIN 27.9 pg (28-32); MEAN CORPUSCULAR HGB CONC 30.8 g/dL (31-35); MEAN CORPUSCULAR VOLUME 90.6 fL (81-99); MONOCYTES # (AUTO) 0.6 (0.2-0.8); MONOCYTES % 6.6 % (4.4-11.3); NEUTROPHILS # (AUTO) 7.2 (2.1-6.9); NEUTROPHILS % 76.6 % (38.7-80.0); PLATELET COUNT 228 x10e3/uL (140-360); RED BLOOD COUNT 4.34 x10e6/uL (4.3-5.7); RED CELL DISTRIBUTION WIDTH 15.9 % (11.7-14.4)
[2023-02-13 18:30] LABS: ALANINE AMINOTRANSFERASE 10 IU/L (0-55); ALBUMIN 3.1 g/dL (3.5-5.0); ALBUMIN/GLOBULIN RATIO 0.8 (0.8-2.0); ALKALINE PHOSPHATASE 58 IU/L (40-150); ANION GAP 13.8 mmol/L (8-16); BLOOD UREA NITROGEN 19 mg/dL (7-26); BUN/CREATININE RATIO 13 (6-25); CARBON DIOXIDE 25 mmol/L (22-29); CHLORIDE 107 mmol/L (98-107); GLUCOSE 198 mg/dL (74-118); POTASSIUM 3.8 mmol/L (3.5-5.1); SODIUM 142 mmol/L (136-145)
[2023-02-13 18:36] LABS: CLARITY,URINE HAZY (CLEAR); COLOR,URINE YELLOW (YELLOW); KETONES,URINE NEGATIVE (NEGATIVE); LEUKOCYTE ESTERASE ,URINE SMALL (NEGATIVE); NITRITE,URINE NEGATIVE (NEGATIVE); PROTEIN,URINE DIPSTICK NEGATIVE (NEGATIVE); URINE UROBILINOGEN 0.2 mg/dL (0.2 - 1)
[2023-02-13 18:47] LABS: BACTERIA,URINE MODERATE /HPF; YEAST,URINE MODERATE
== END 2023-02-13 22:10 | disposition home or self-care (01) ==
LOC: ER 16:16
DX: R53.1 Weakness (principal); N17.9 Acute kidney failure, unspecified; E66.01 Morbid (severe) obesity due to excess calories; R26.89 Other abnormalities of gait and mobility; I10 Essential (primary) hypertension; G40.909 Epilepsy, unspecified, not intractable, without status epilepticus; F41.9 Anxiety disorder, unspecified; M54.9 Dorsalgia, unspecified; G89.29 Other chronic pain; Z20.822 Contact with and (suspected) exposure to COVID-19
CPT/HCPCS: 0223U; 36415; 71045; 80053; 81001; 83880; 84484; 85025; 93005; 99282